=== PATIENT | male | born 1990 | race Caucasian/White ===

== ENCOUNTER → 2022-03-23 | Emergency (ER) | payer OTHER ==
[2022-03-23] VITALS (11 sets, daily range): BP systolic 98–131; BP diastolic 50–91
[~2022-03-23] VITALS: Ht 167.6 cm; Wt 63.0 kg
[~2022-03-23] MED LIST: AMOXICILLIN500 MG PO; BACTRIM DS1 TAB PO; BENADRY2 EX; CEPHALEXIN500 M1 PO; LORTAB 5-325 MG1 TAB PO; MOTRIN800 MG PO; NO HOME MEDS; [UNRECOGNIZED DRUG - OTHER] OP
== END | disposition home or self-care (01) | DRG 603 ==
LOC: ED 12:33
DX: L02.414 Cutaneous abscess of left upper limb (principal)

== ENCOUNTER 2022-03-24 13:48 | Emergency (ER) | payer OTHER ==
[~2022-03-24] VITALS: Ht 167.6 cm; Wt 63.6 kg
[2022-03-24 14:41] VITALS: BP 112/63
== END 2022-03-24 15:51 | disposition home or self-care (01) | DRG 951 ==
LOC: ED 13:48
DX: Z48.00 Encounter for change or removal of nonsurgical wound dressing (principal)

== ENCOUNTER 2023-06-17 03:16 | Emergency (ER) | payer SELFPAY ==
[~2023-06-17] VITALS: Ht 167.6 cm; Wt 65.0 kg
[2023-06-17 03:46] VITALS: BP 114/68
[2023-06-17] MEDS ORDERED: GENTAMICIN0.3 % OS (03:49)
[2023-06-17 03:53] VITALS: BP 114/68
== END 2023-06-17 04:03 | disposition home or self-care (01) | DRG 125 ==
LOC: ED 03:16
DX: S05.02XA Injury of conjunctiva and corneal abrasion without foreign body, left eye, initial encounter (principal); F17.200 Nicotine dependence, unspecified, uncomplicated; X58.XXXA Exposure to other specified factors, initial encounter